=== PATIENT | female | born 1990 | race African-American/Black ===

== ENCOUNTER 2017-03-18 22:27 | Emergency (ER) | payer SELFPAY ==
[~2017-03-18 22:27] MED LIST: AZITHROMYCIN250 MG PO; BACTRIM DS TABL1 TAB PO; ILOTYCIN1 G1 EACH EYE; NAPROXEN500 MG PO; PRENATAL CAPLE1 EACH PO; PRENATAL1 EACH PO; PROMETHAZINE25 MG PO; ZITHROMAX250MG Z-PAK PO; ZOFRAN4 M2 PO; [UNRECOGNIZED DRUG - MIXTURE] PO
[2017-03-18] MEDS ORDERED: NO HOME MEDICATION XX (22:39)
[2017-03-18] MEDS ORDERED: ZOFRAN4 M2 PO (23:39)
== END 2017-03-19 00:01 ==
LOC: EDMED 22:27
DX: R07.9 Chest pain, unspecified (principal)
CPT/HCPCS: J1885; J2405